=== PATIENT | female | born 1950 | race Caucasian/White ===

== ENCOUNTER 2021-05-28 13:37 | Inpatient (IN) | payer MEDICARE, OTHER ==
[~2021-05-28] VITALS: Ht 172.7 cm; Wt 64.1 kg
--- NOTE | 2021-05-28 13:45 | NUR ---
PT TX FROM [facility] FOR SEPSIS, BILATERAL PNEUMONIA. PT RECENTLY TX FOR SEPTIC SHOCK IN [place] FOR THE SAME DX BUT WAS DISCHARGED FROM THE HOSPITAL AND CLEARED BY MD TO TRAVEL. PT REC'VD TX AT [facility] WHICH INCLUDED 30 MG/KG NS, VANCO, AND UNASYN. LACTIC AT PREVIOUS FACILITY WAS INITIALLY 5.3 AND THEN WAS 1.6. PIV 20 GA RAC AND LAC SHAPE BRICK MOLDER.
[2021-05-28] MEDS ORDERED: ONDANSETRON 2MG/ML, 2ML IVPush PRN (14:30)
[2021-05-28] MEDS ORDERED: VANCOMYCIN PER PHARMACY MC PRN ×2 (14:30→16:30)
[2021-05-28] MEDS ORDERED: PIPERACILLIN/TAZO 3.375 GM in DEXTROSE 5% 50 ML IV SCH (14:30)
[2021-05-28] MEDS ORDERED: HEPARIN 5,000 UNITS/ML, 1ML SQ SCH (14:30)
[2021-05-28] MEDS ORDERED: ONDANSETRON ODT 4 MG PO PRN (14:30)
--- NOTE | 2021-05-28 15:13 | NUR ---
RESTING FAMILY AT THE [facility] GIVEN
[2021-05-28 15:30] LABS: ANION GAP 7 mmol/L (5-15); CALCIUM 7.9 mg/dL (8.5-10.1); CHLORIDE 112 mmol/L (98-107); CREATININE 0.98 mg/dL (0.55-1.02)
[2021-05-28 15:31] LABS: MEAN CORPUSCULAR HGB CONC 33.9 g/dL (32.4-35.8); MEAN PLATELET VOLUME 7.3 fL (7.4-10.4); PLATELET COUNT 149 x10^3/uL (130-400); RED BLOOD COUNT 4.16 x10^6/uL (3.82-5.3); RED CELL DISTRIBUTION WIDTH 12.5 % (9.6-15.2)
[2021-05-28] MEDS ORDERED: LACTOBACILLUS CHEW TABLET PO SCH (16:00)
[2021-05-28 16:13] LABS: BAND#(MANUAL) 0.85 x10^3/uL; BANDS%(MANUAL) 17 % (0-7); BASOS#(MANUAL) 0.05 x10^3/uL (0-0.1); BASOS% (MANUAL) 1 % (0-1); LYMPH#(MANUAL) 0.05 x10^3/uL (1-3.4); LYMPHS% (MANUAL) 1 % (22-44); METAMYELOCYTES# (MANUAL) 0.05 x10^3/uL (0-0); METAMYELOCYTES% (MANUAL) 1 % (0-1); MONOS% (MANUAL) 4 % (2-9); SEGS% (MANUAL) 76 % (42-75)
[2021-05-28 16:15] LABS: <PLATELET ESTIMATE> ADEQUATE; <PLT MORPHOLOGY> NORMAL PLT MORPH; <RBC MORPHOLOGY> NORMAL
--- NOTE | 2021-05-28 16:32 | NUR ---
PHONE REPORT TO [facility]
[2021-05-28] MEDS ORDERED: ACETAMINOPHEN 325 MG TABLET ONE (17:12)
[2021-05-28] MEDS: ACETAMINOPHEN 325 MG TABLET PO PRN (17:15)
[2021-05-28 17:25] VITALS: BP 118/52
[2021-05-28] MEDS ORDERED: VANCOMYCIN 1,300 MG in SODIUM CHLORIDE 0.9% 250 ML IV ONE (17:30)
[2021-05-28] MEDS ORDERED: PHARMACOKINETIC MONITORING MC PRN (17:30)
[2021-05-28] MEDS: HEPARIN 5,000 UNITS/ML, 1ML SQ SCH (17:57)
[2021-05-28] MEDS: SODIUM CHLORIDE 0.9% 1,000 ML IV SCH (17:57)
[2021-05-28 19:08] VITALS: BP 106/62
[2021-05-28] MEDS: TRAZODONE 50MG TABLET PO SCH (20:18)
[2021-05-28] MEDS: PANTOPRAZOLE 40MG TABLET PO SCH (20:18)
[2021-05-28] MEDS: LAMOTRIGINE 100 MG TABLET PO SCH (20:18)
[2021-05-28] MEDS: PIPERACILLIN/TAZO 3.375 GM in DEXTROSE 5% 50 ML IV SCH (20:18)
[2021-05-28] MEDS: LACTOBACILLUS CHEW TABLET PO SCH (20:19)
[2021-05-28] MEDS ORDERED: PANTOPRAZOLE 40MG TABLET PO SCH (21:00)
[2021-05-28] MEDS ORDERED: LAMOTRIGINE 100 MG TABLET PO SCH (21:00)
[2021-05-28] MEDS ORDERED: TRAZODONE 50MG TABLET PO SCH (21:00)
[2021-05-29] MEDS ORDERED: CHOL10003 PO (00:34)
[2021-05-29] MEDS ORDERED: TRAZ-96 PO (00:34)
[2021-05-29] MEDS ORDERED: LAMO150T3 PO (00:34)
[2021-05-29] MEDS ORDERED: PANT40GR PO (00:34)
[2021-05-29 01:52] VITALS: BP 108/60
[2021-05-29] MEDS: PIPERACILLIN/TAZO 3.375 GM in DEXTROSE 5% 50 ML IV SCH ×4 (02:01→21:38)
[2021-05-29] MEDS: HEPARIN 5,000 UNITS/ML, 1ML SQ SCH ×2 (05:49→17:19)
[2021-05-29] MEDS ORDERED: ACETAMINOPHEN 325 MG TABLET ONE ×3 (06:02→20:14)
[2021-05-29] MEDS: ACETAMINOPHEN 325 MG TABLET PO PRN ×3 (06:05→20:26)
[2021-05-29 08:02] VITALS: BP 111/63
[2021-05-29] MEDS: PANTOPRAZOLE 40MG TABLET PO SCH ×2 (08:19→20:26)
[2021-05-29] MEDS: LACTOBACILLUS CHEW TABLET PO SCH ×3 (08:19→20:26)
[2021-05-29] MEDS: SODIUM CHLORIDE 0.9% 1,000 ML IV SCH (11:54)
[2021-05-29 12:24] VITALS: BP 109/59
[2021-05-29] MEDS: VANCOMYCIN 1,100 MG in SODIUM CHLORIDE 0.9% 250 ML IV SCH (17:18)
[2021-05-29 19:10] VITALS: BP 110/56
[2021-05-29] MEDS: TRAZODONE 50MG TABLET PO SCH (20:26)
[2021-05-29] MEDS: LAMOTRIGINE 100 MG TABLET PO SCH (20:26)
[2021-05-30 01:38] VITALS: BP 107/60
[2021-05-30] MEDS ORDERED: ACETAMINOPHEN 325 MG TABLET ONE ×2 (02:30→21:42)
[2021-05-30] MEDS: ACETAMINOPHEN 325 MG TABLET PO PRN ×2 (02:32→21:47)
[2021-05-30] MEDS: PIPERACILLIN/TAZO 3.375 GM in DEXTROSE 5% 50 ML IV SCH ×4 (02:34→20:50)
[2021-05-30] MEDS: HEPARIN 5,000 UNITS/ML, 1ML SQ SCH ×2 (05:17→18:40)
[2021-05-30 07:35] LABS: BASOPHILS % (AUTO) 1 % (0-1); EOSINOPHILS % (AUTO) 6 % (1-7); LYMPHOCYTES % (AUTO) 26 % (22-44); MEAN CORPUSCULAR HGB CONC 33.9 g/dL (32.4-35.8); MEAN PLATELET VOLUME 8.1 fL (7.4-10.4); MONOCYTES % (AUTO) 8 % (2-9); NEUTROPHILS % (AUTO) 59 % (42-75); PLATELET COUNT 134 x10^3/uL (130-400); RED BLOOD COUNT 3.76 x10^6/uL (3.82-5.3); RED CELL DISTRIBUTION WIDTH 12.4 % (9.6-15.2)
[2021-05-30 07:49] LABS: ALBUMIN 2.6 g/dL (3.4-5.0); CALCIUM 8.3 mg/dL (8.5-10.1); CHLORIDE 114 mmol/L (98-107)
[2021-05-30 08:01] LABS: ANION GAP 3 mmol/L (5-15)
[2021-05-30] MEDS: PANTOPRAZOLE 40MG TABLET PO SCH ×2 (08:59→20:51)
[2021-05-30] MEDS: LACTOBACILLUS CHEW TABLET PO SCH ×3 (09:00→20:51)
[2021-05-30 10:43] VITALS: BP 120/72
[2021-05-30 10:44] VITALS: BP 120/72
[2021-05-30 11:43] VITALS: BP 126/85
[2021-05-30] MEDS: SODIUM CHLORIDE 0.9% 1,000 ML IV SCH (14:00)
[2021-05-30 14:10] VITALS: BP 122/73
[2021-05-30] MEDS: VANCOMYCIN 1,100 MG in SODIUM CHLORIDE 0.9% 250 ML IV SCH (18:47)
[2021-05-30 20:28] VITALS: BP 128/68
[2021-05-30] MEDS: TRAZODONE 50MG TABLET PO SCH (20:50)
[2021-05-30] MEDS: LAMOTRIGINE 100 MG TABLET PO SCH (20:51)
[2021-05-30] MEDS ORDERED: ONDANSETRON ODT 4 MG ONE (21:42)
[2021-05-31 00:22] VITALS: BP 107/59
[2021-05-31] MEDS: PIPERACILLIN/TAZO 3.375 GM in DEXTROSE 5% 50 ML IV SCH ×3 (02:52→15:27)
[2021-05-31] MEDS: HEPARIN 5,000 UNITS/ML, 1ML SQ SCH ×2 (05:34→17:30)
[2021-05-31] MEDS: SODIUM CHLORIDE 0.9% 1,000 ML IV SCH (06:40)
[2021-05-31] MEDS ORDERED: SODIUM CHLORIDE INHALATION 7%, 4 ML NPPB ONE (07:00)
[2021-05-31 08:06] VITALS: BP 150/82
[2021-05-31] MEDS: LACTOBACILLUS CHEW TABLET PO SCH ×2 (08:11→16:12)
[2021-05-31] MEDS: PANTOPRAZOLE 40MG TABLET PO SCH (08:11)
[2021-05-31 08:26] LABS: ALBUMIN 2.8 g/dL (3.4-5.0); ANION GAP 2 mmol/L (5-15); CALCIUM 8.8 mg/dL (8.5-10.1); CHLORIDE 112 mmol/L (98-107)
[2021-05-31 08:30] LABS: ALANINE AMINOTRANSFERASE 26 U/L (12-78); ALKALINE PHOSPHATASE 42 U/L (45-117); BILIRUBIN,TOTAL 0.4 mg/dL (0.2-1.0); CREATININE 0.77 mg/dL (0.55-1.02)
[2021-05-31] MEDS ORDERED: ACETAMINOPHEN 325 MG TABLET ONE (10:54)
[2021-05-31] MEDS: ACETAMINOPHEN 325 MG TABLET PO PRN (10:55)
[2021-05-31] MEDS ORDERED: AMOX1TAB64 PO (12:30)
[2021-05-31] MEDS ORDERED: AZIT500T10 PO (12:30)
[2021-05-31] MEDS ORDERED: ACID1TAB7 PO (12:30)
[2021-05-31] MEDS ORDERED: VANCOMYCIN 1,100 MG in SODIUM CHLORIDE 0.9% 250 ML IV SCH (13:00)
[2021-05-31] MEDS ORDERED: MAGNESIUM SULFATE PMX 4GM/100M 100 ML IVPB ONE (13:00)
[2021-05-31] MEDS ORDERED: POTASSIUM CHLORIDE 20 MEQ TAB.ER.PRT PO SCH (13:00)
[2021-05-31] MEDS ORDERED: MAGNESIUM SULFATE PMX 2GM/50ML 50 ML IV ONE (13:00)
[2021-05-31] MEDS ORDERED: MAGNESIUM OXIDE 400 MG TABLET PO ONE (13:00)
[2021-05-31 14:21] VITALS: BP 113/65
== END 2021-05-31 18:15 | disposition home or self-care (01) | DRG 871 ==
LOC: ED 14:50 → EDIP 14:57 → UNDODISIN 16:18 → 4EST 17:21
PROVIDERS: ADMIT Internal Medicine; ATTEND Internal Medicine
DX: A41.9 Sepsis, unspecified organism (principal); J96.01 Acute respiratory failure with hypoxia; J18.9 Pneumonia, unspecified organism; E87.6 Hypokalemia; E83.42 Hypomagnesemia; F32.9 Major depressive disorder, single episode, unspecified; F41.1 Generalized anxiety disorder; I10 Essential (primary) hypertension; K21.9 Gastro-esophageal reflux disease without esophagitis; Z82.49 Family history of ischemic heart disease and other diseases of the circulatory system; Z87.01 Personal history of pneumonia (recurrent); Z20.822 Contact with and (suspected) exposure to COVID-19; R15.9 Full incontinence of feces
CPT/HCPCS: 36415; 36600; 71045; 80048; 80053; 80069; 82803; 83735; 85025; 86480; 86635; 87040; 87385; 87449; 93005; 96374; G0378; J1644; J2543; J3370; Q0162; U0005; J3475; J7030; J7050; U0003